=== PATIENT | male | born 1985 | race Caucasian/White ===

== ENCOUNTER 2023-05-30 14:33 | Emergency (ER) | payer OTHER, SELFPAY ==
[2023-05-30 14:49] VITALS: BP 144/87; PULSE 84; RESP 18; TEMP 37.1; O2SAT 99; BMI 23.7
--- NOTE | 2023-05-30 16:11 | CRLHL7_ITS ---
For Patients: As a result of the Cures Act, medical imaging exams and procedure reports are released immediately into your electronic medical record. You may view this report before your referring provider. If you have questions, please contact your health care provider. HISTORY: Left-sided chest pain. TECHNIQUE: Two views of the chest. COMPARISON: No prior. FINDINGS: No acute lung infiltrate or pulmonary edema. No pneumothorax or pleural effusion. Heart size and pulmonary vasculature are within normal limits. No acute bony abnormality. Gas distention of the colon. IMPRESSION: No acute cardiopulmonary disease. Dictated by Toño Otoole MD @ 05/30/2023 5:20:09 PM Dictated by: Toño Otoole MD @ 05/30/2023 17:20:13 (Electronically Signed)
[2023-05-30 16:41] LABS: Basophils Absolute Auto 0.01 K/uL (0.00-0.30); Basophils Percent Auto 0.2 % (0.0-3.0); Eosinophils Absolute Auto 0.18 K/uL (0.00-0.50); Eosinophils Percent Auto 3.5 % (0.0-7.0); Hematocrit 43.1 % (37.0-53.0); Hemoglobin* 14.9 gm/dL (13.5-17.5); Immature Granulocytes Abs Auto 0.02 K/uL (0.00-0.30); Immature Granulocytes Pct Auto 0.4 %; Lymphocytes Absolute Auto 1.99 K/uL (0.90-2.90); Lymphocytes Percent Auto 38.9 % (20-44); Mean Corpuscular HGB Conc 35 gm/dL (32-36); Mean Corpuscular Hemoglobin 31 pg (26-34); Mean Corpuscular Volume 90 fL (80-100); Monocytes Percent Auto 10.4 % (0.0-11.0); Neutrophils Absolute Auto 2.38 K/uL (1.7-7.0); Neutrophils Percent Auto 46.6 % (42.0-72.0); Platelet Count* 188 K/uL (140-440); RDW Coefficient of Variation % 12.1 % (11.5-15.5); Red Blood Count 4.78 m/uL (4.30-5.90); White Blood Count* 5.11 K/uL (4.50-11.00)
[2023-05-30 16:46] LABS: Slide Review Reflex No
[2023-05-30 16:58] VITALS: PULSE 76; O2SAT 96
[2023-05-30 16:58] LABS: Chloride* 104 mmol/L (96-114)
[2023-05-30 16:59] LABS: Potassium* 3.5 mmol/L (3.6-5.1); Sodium* 140 mmol/L (135-149)
[2023-05-30 17:00] VITALS: PULSE 78; O2SAT 96
[2023-05-30 17:01] VITALS: BP 147/101; PULSE 81; O2SAT 96
[2023-05-30 17:01] LABS: Creatinine* 0.5 mg/dL (0.5-1.5); Estimated Glomerular Filt Rate 135 ml/min
[2023-05-30 17:02] LABS: Anion Gap 12 mEq/L (7-15); Blood Urea Nitrogen* 15 mg/dL (5-24); Calcium* 9.5 mg/dL (8.4-10.6); Carbon Dioxide* 24 mmol/L (20-32); Glucose* 92 mg/dL (60-115)
--- NOTE | 2023-05-30 17:05 | ED.GENADULT ---
HPI - General Adult General Date Seen: 05/30/23 Chief complaint: Chest Pain Stated complaint: L side pain, gassy feeling in arm and back 11/07 Time Seen by Provider: 05/30/23 16:02 Source: patient Mode of arrival: ambulatory Limitations: no limitations History of Present Illness HPI narrative: Patient is a 37-year-old male with no pertinent medical problems presents emergency department for left-sided chest pain. Says the pain is intermittent and radiates to his left upper back. Says the dull sensation. Says that 1st happened to him 2 days ago when he woke up but then went away by time he got to work. Occurred again yesterday with same timing. Today he woke up with the symptoms again but they continued throughout the day intermittently so decided come the emergency department to be evaluated. Denies any tenderness to palpation. Denies shortness of breath, worsening pain on deep breaths, headache, vision changes, weakness, numbness, lightheadedness, dizziness. States sometimes the pain radiates down his left arm. No other concerns at this time. Related Data Home Medications Medication Instructions Recorded Confirmed No Known Home Medications 05/30/23 05/30/23 Allergies Allergy/AdvReac Type Severity Reaction Status Date / Time No Known Drug Allergies Allergy Verified 05/30/23 14:51 Review of Systems Status of ROS: Reports: 10 or more systems reviewed and unremarkable except as noted in History and below [facility] Social History How often do you have a drink containing alcohol: never AUDIT-C Alcohol total score: 0 Non-prescribed substance use: denies use Exam Narrative: Exam Narrative: Const: Well-nourished, Well-developed, in no distress Eyes: PERRL, no conjunctival injection, and symmetrical lids HENT: Atraumatic external nose and ears. Moist mucous membranes. Neck: Symmetric, trachea midline, No thyromegaly. CVS: RRR, No murmurs or gallops. Peripheral pulses 2+ and equal in all extremities RESP: Unlabored respiratory effort. Clear to auscultation bilaterally. GI: Nontender/Nondistended, No rebound or guarding. MSK:Extremities w/o deformity, Normal Active ROM no tenderness to palpation of chest Skin: Warm, Dry. No rashes or lesions. Neuro: Normal Muscle tone, No focal neurological deficits. Psych: Awake, Alert, & Oriented x3. Appropriate mood and affect. Const: Vital Signs, click to edit/add: Vital Signs - 24 hr 05/30/23 14:49 05/30/23 16:58 05/30/23 17:00 Temperature 98.8 F Pulse Rate 76 78 Pulse Rate [Right Pulse Oximeter] 84 Respiratory Rate 18 Blood Pressure Blood Pressure [Ri ght Upper Arm] 144/87 H Pulse Oximetry 99 96 96 Oxygen Delivery Me thod Room Air 05/30/23 17:01 Temperature Pulse Rate 81 Pulse Rate [Right Pulse Oximeter] Respiratory Rate Blood Pressure 147/101 H Blood Pressure [Ri ght Upper Arm] Pulse Oximetry 96 Oxygen Delivery Me thod Course Vital Signs Vital signs: Initial Vital Signs Temperature 98.8 F 05/30/23 14:49 Temperature Source Temporal Artery Scan 05/30/23 14:49 Pulse Rate 84 05/30/23 14:49 Respiratory Rate 18 05/30/23 14:49 Blood Pressure 144/87 H 05/30/23 14:49 Blood Pressure Mean 106 H 05/30/23 14:49 Blood Pressure Position Sitting 05/30/23 14:49 Pulse Oximetry 99 05/30/23 14:49 Oxygen Delivery Method Room Air 05/30/23 14:49 Vital Signs Temperature 98.8 F 05/30/23 14:49 Pulse Rate 84 05/30/23 14:49 Respiratory Rate 18 05/30/23 14:49 Blood Pressure 144/87 H 05/30/23 14:49 Pulse Oximetry 99 05/30/23 14:49 Oxygen Delivery Method Room Air 05/30/23 14:49 Temperature 98.8 F 05/30/23 14:49 Pulse Rate 81 05/30/23 17:01 Respiratory Rate 18 05/30/23 14:49 Blood Pressure 147/101 H 05/30/23 17:01 Pulse Oximetry 96 05/30/23 17:01 Oxygen Delivery Method Room Air 05/30/23 14:49 Medical Decision Making MDM Narrative Medical decision making narrative: Patient is a 37-year-old male presents emergency department for chest pain. Symptoms 1st started 2 days ago when he woke up it resolved by time he went to work. Same thing happened yesterday. Today woke up and the symptoms have not been going away so came to the emergency department to be evaluated. No history of unilateral leg swelling, hemoptysis, recent surgery, history of blood clots. He is PERC negative unlikely to be a PE. Chest x-ray was ordered and does not show signs of a pneumothorax. Initial troponin was within normal limits. Concerns symptoms have been going on for multiple days and not believe is necessary to repeat a troponin. His heart score is 0. Code status fluid both negative. His only abnormal lab work was a mildly low potassium at 3.5. He is otherwise looking well. Of the patient is safe for discharge he is agreeable to this plan. Lab Data Labs: Lab Results 05/30/23 Range/Units 14:34 WBC 5.11 (4.50-11.00) K/uL RBC 4.78 (4.30-5.90) m/uL Hgb 14.9 (13.5-17.5) gm/dL Hct 43.1 (37.0-53.0) % MCV 90 (80-100) fL MCH 31 (26-34) pg MCHC 35 (32-36) gm/dL RDW Coeff of Judith 12.1 (11.5-15.5) % Plt Count 188 (140-440) K/uL Neut % (Auto) 46.6 (42.0-72.0) % Lymph % (Auto) 38.9 (20-44) % Brule % (Auto) 10.4 (0.0-11.0) % Eos % (Auto) 3.5 (0.0-7.0) % Baso % (Auto) 0.2 (0.0-3.0) % Neut # (Auto) 2.38 (1.7-7.0) K/uL Lymph # (Auto) 1.99 (0.90-2.90) K/uL Brule # (Auto) 0.50 (0.00-0.90) K/UL Eos # (Auto) 0.18 (0.00-0.50) K/uL Baso # (Auto) 0.01 (0.00-0.30) K/uL Abs Immat Gran (auto) 0.02 (0.00-0.30) K/uL Imm/Tot Granulo (auto) 0.4 % Sodium 140 (135-149) mmol/L Potassium 3.5 L (3.6-5.1) mmol/L Chloride 104 (96-114) mmol/L Carbon Dioxide 24 (20-32) mmol/L Anion Gap 12 (7-15) mEq/L BUN 15 (5-24) mg/dL Creatinine 0.5 (0.5-1.5) mg/dL Estimated Creat Clear 241.76 Estimated GFR 135 ml/min Glucose 92 (60-115) mg/dL Calcium 9.5 (8.4-10.6) mg/dL Troponin I < 0.01 L (0.01-0.04) ng/mL SARS-CoV-2 (PCR) Negative SARS-CoV-2 (Negative) Influenza Type A (PCR) Negative PCR FLU A (Negative) Influenza Type B (PCR) Negative PCR FLU B (Negative) Imaging Data Chest x-ray: Radiologist's impression: HISTORY: Left-sided chest pain. TECHNIQUE: Two views of the chest. COMPARISON: No prior. FINDINGS: No acute lung infiltrate or pulmonary edema. No pneumothorax or pleural effusion. Heart size and pulmonary vasculature are within normal limits. No acute bony abnormality. Gas distention of the colon. IMPRESSION: No acute cardiopulmonary disease. Dictated by Toño Otoole MD @ 05/30/2023 5:20:09 PM ECG Data Attestation: I personally reviewed and interpreted this ECG as follows: Prior ECG tracings: not available for review Interpretation: Normal sinus rhythm at a rate of 80 beats per minute, normal intervals, normal axis, no ST or T-wave abnormalities. Discharge Plan Discharge Clinical Impression: Atypical chest pain Patient Disposition: Home, Self-Care Condition: Stable Instructions: Noncardiac Chest Pain (ED) Additional Instructions: Follow-up with your primary care provider if symptoms persist. Return for new or worsened symptoms. He can take Tylenol and ibuprofen for pain. Does not appear to be any acute heart or lung causes of your pain at this time. Prescriptions: No Action No Known Home Medications Follow Up/Referrals: Charanjit Platt MD [Primary Care Provider] - Stand Alone Forms: GL 2ours Info Instructions
[2023-05-30 17:15] LABS: Troponin I* < 0.01 ng/mL (0.01-0.04)
[2023-05-30 17:18] LABS: PCR FLU A Negative PCR FLU A (Negative); PCR FLU B Negative PCR FLU B (Negative)
[2023-05-30 17:20] LABS: SARS PCR* Negative SARS-CoV-2 (Negative)
== END 2023-05-30 17:45 | disposition home or self-care (01) ==
PROVIDERS: Emergency Provider Student in an Organized Health Care Education/Training Program; PCP Family Medicine
DX: R07.89 Other chest pain (principal)
CPT/HCPCS: 36415; 71046; 80048; 84484; 85025; 87631; 93005; 99283; 99284; 99285

== ENCOUNTER 2024-04-28 08:58 | Emergency (ER) | payer BC, SELFPAY ==
[2024-04-28 09:01] VITALS: BP 144/84; PULSE 78; RESP 18; TEMP 37.1; O2SAT 97; BMI 24.0
--- NOTE | 2024-04-28 09:18 | ED.SKABFB ---
HPI - Skin/Abscess/Foreign Bdy General Time Seen by Provider: 09:19 Date Seen: 04/28/24 Chief complaint: Skin/Abscess/Foreign Body Stated complaint: Shingles ear pain Time Seen by Provider: 04/28/24 09:16 Source: patient and RN notes reviewed Mode of arrival: ambulatory Limitations: no limitations History of Present Illness HPI narrative: This 38-year-old male is coming in with concerns of ear involvement with shingles. He was diagnosed had urgent care with shingles yesterday. He did notice some blisters on his left face sometime on Thursday. It was worsened yesterday. He was diagnosed with shingles. Today he has some blistering in his left ear, did hear some muffled sounds earlier, some ringing in his ear. He does not have that now. He is aware of complications of hearing loss with shingles involving the ear. He has had no fevers. He was started on Valtrex 1 g 3 times a day, had 2 doses yesterday, 1 dose this morning. The only had ibuprofen at home, that is not completely controlling his pain. His did get some Tylenol today. He will start alternating those 2 medications. He is on no other medicines. They did talk to him about post herpetic neuralgia at urgent care yesterday. He went to [facility] yesterday. He initially was in our urgent care on April 25 with sense of sinus pressure, thought maybe he had gotten water in his sinuses from swimming. His examination was normal at that time. He was having significant left-sided headaches. It is now clear where this pain was coming from with the development of the rash. MD complaint: rash Related Data Home Medications ?Medication ?Instructions ?Recorded ?Confirmed cetirizine 10 mg capsule (Zyrtec) 10 mg PO QDAY PRN 06/05/23 04/28/24 famotidine 20 mg tablet 20 mg PO BID 04/28/24 04/28/24 valacyclovir 1 gram tablet 1,000 mg PO TID 04/28/24 04/28/24 Previous Rx's ?Medication ?Instructions ?Recorded amitriptyline 25 mg tablet 25 mg PO QHS #14 tabs 04/28/24 oxycodone 5 mg tablet 5 mg PO Q6H PRN pain #10 tabs 04/28/24 prednisone 20 mg tablet 20 mg PO BID #14 tabs 04/28/24 Allergies Allergy/AdvReac Type Severity Reaction Status Date / Time No Known Drug Allergies Allergy Verified 04/28/24 09:06 Review of Systems Narrative: As per HPI. PFSH PFS Social History Smoking Status: Never smoker Do you use any of these nicotine containing products: None How often do you have a drink containing alcohol: never How often do you have six or more drinks on one occasion: Never AUDIT-C Alcohol total score: 0 Non-prescribed substance use: denies use service: No Exam Const: Vital Signs, click to edit/add: Vital Signs - 24 hr 04/28/24 09:01 Temperature 98.7 F Pulse Rate [Right Pulse Oximeter] 78 Respiratory Rate 18 Blood Pressure [Ri ght Upper Arm] 144/84 H Pulse Oximetry 97 Oxygen Delivery Me thod Room Air This 38-year-old male is alert, interactive, no apparent distress. He has bandages along his left lower face, underneath is erythematous base blistering rash over the left lower jaw. There is some in his left scalp area that is crusted. He has a crusted lesion on the upper outer ear. The left ear canal has some erythema, do not see discrete lesions but presume there there as there is some erythema. Can see down inferiorly to the tympanic membrane and there is no erythema. Right TM canal are completely normal. Sclera clear, extraocular muscles intact. No periorbital involvement. Nose has no involvement. Lesions primarily are along the left lower face and lower jaw, up to the ear but do see some in the left hairline and scalp area as well. The ones in the hair seemed to be crusted already. There is no evidence of any secondary erythema or infection. Documenting provider has reviewed patient's vital signs: yes Course Course ED Course: Discussed pain management regimen with patient. Did offer amitriptyline verses gabapentin bedtime to help with pain. He chose amitriptyline, felt more comfortable with that. Will do a low dose of 25 mg, if he finds it helpful this could be escalated by his primary. Will give him a few oxycodone for more severe pain. Discussed that prednisone should be added in, did review 1 up-to-date and it is imperative he completes the Valtrex but if there is ear involvement, prednisone should be initiated to help diminish the chance of chronic hearing loss. Reviewed with him that I will talk to ENT as well to make sure they are have no other recommendations. Consultations Consultation #1: Did speak with ENT Dr. Abebe. He agrees with managing with addition of prednisone, complete Valtrex. He would like to see this patient in a couple of weeks and Clinic, will do follow-up hearing check. Time: 09:31 Vital Signs Vital signs: Initial Vital Signs Temperature 98.7 F 04/28/24 09:01 Temperature Source Temporal Artery Scan 04/28/24 09:01 Pulse Rate 78 04/28/24 09:01 Pulse Rhythm Regular 04/28/24 09:01 Respiratory Rate 18 04/28/24 09:01 Blood Pressure 144/84 H 04/28/24 09:01 Blood Pressure Mean 104 04/28/24 09:01 Blood Pressure Position Sitting 04/28/24 09:01 Pulse Oximetry 97 04/28/24 09:01 Oxygen Delivery Method Room Air 04/28/24 09:01 Vital Signs Temperature 98.7 F 04/28/24 09:01 Pulse Rate 78 04/28/24 09:01 Respiratory Rate 18 04/28/24 09:01 Blood Pressure 144/84 H 04/28/24 09:01 Pulse Oximetry 97 04/28/24 09:01 Oxygen Delivery Method Room Air 04/28/24 09:01 Temperature 98.7 F 04/28/24 09:01 Pulse Rate 78 04/28/24 09:01 Respiratory Rate 18 04/28/24 09:01 Blood Pressure 144/84 H 04/28/24 09:01 Pulse Oximetry 97 04/28/24 09:01 Oxygen Delivery Method Room Air 04/28/24 09:01 Discharge Plan Discharge Clinical Impression: Herpes zoster oticus Herpes zoster Qualifiers: Herpes zoster complications: with other complications Qualified Code(s): B02.8 - Zoster with other complications Patient Disposition: Home, Self-Care Condition: Stable Instructions: Shingles (ED) Additional Instructions: Can use ibuprofen per bottle directions and Tylenol 1000 mg 3 times a day for baseline pain management. Initiate amitriptyline at bedtime, will start low-dose at 25 mg. This can help decrease the pain syndrome with shingles. If you are finding this helpful, dosage can be escalated through your primary care provider. Will also give you a small amount of oxycodone for severe pain that is not responsive to the Tylenol and ibuprofen. Oxycodone is a narcotic, cannot drive or operate machinery with it, can be addictive. Oxycodone can cause as narcotic associated constipation, recommend using MiraLax and or senna if you take this. It is essential that you complete the Valtrex treatment to help diminish the severity, the length and post herpetic neuralgia syndrome. We will also add in prednisone to help treat complications of herpes zoster otic us, hopefully with the treatment of the prednisone there will be no complications of hearing loss. Dr. Abebe, ENT specialist, would like to see you in clinic in a couple of weeks for follow-up and hearing evaluation. You can get scheduled to see him in [place] but need to call the [facility] which does his scheduling, phone number is [phone]. Take the prednisone with food, this will help protect your stomach from irritation from prednisone. Taking the prednisone in the morning and sometime from noon to early afternoon can help prevent insomnia issues from the prednisone. Activity Level: Activity as Tolerated Prescriptions: New prednisone 20 mg tablet 20 mg PO BID Qty: 14 0RF amitriptyline 25 mg tablet 25 mg PO QHS Qty: 14 0RF oxycodone 5 mg tablet 5 mg PO Q6H PRN (Reason: pain) Qty: 10 0RF No Action Zyrtec 10 mg capsule 10 mg PO QDAY PRN valacyclovir 1 gram tablet 1,000 mg PO TID famotidine 20 mg tablet 20 mg PO BID Follow Up/Referrals: Charanjit Platt MD [Primary Care Provider] - Stand Alone Forms: NeedFeed Info Instructions
== END 2024-04-28 10:00 | disposition home or self-care (01) ==
LOC: ED 10:30
PROVIDERS: Emergency Provider Family Medicine; PCP Family Medicine
DX: B02.8 Zoster with other complications (principal)
CPT/HCPCS: 99283